=== PATIENT | female | born 1950 | race Caucasian/White ===

== ENCOUNTER → 2017-08-04 | Outpatient (CLI) | payer OTHER ==
[~2017-08-04] MED LIST: COQ PO; TRAN4TAB11 PO; TURMERIC PO; VITAMIN D PO; VITAMIN K PO
== END | disposition home or self-care (01) ==
LOC: C.PAPS 13:28
PROVIDERS: ATTEND Obstetrics & Gynecology
DX: Z01.419 Encounter for gynecological examination (general) (routine) without abnormal findings (principal)